=== PATIENT | female | born 1970 | race Caucasian/White ===

== ENCOUNTER → 2017-01-06 | Outpatient (CLI) | payer MEDICAID, MEDICARE ==
--- NOTE | 2017-01-06 08:18 | MR ---
EXAMINATION TYPE: MR lumbar spine wo con DATE OF EXAM: 01/06/2017 7:37 AM COMPARISON: NONE HISTORY: lsp radiculopathy Multiplanar, MultiSpin echo imaging of the lumbar spine was performed. L1-L2: Normal disc appearance without desiccation. No herniation, protrusion or disc bulging. No ca nal stenosis is present. Foramina are patent bilaterally. L2-L3: Mild decreased signal ossified compatible with mild degenerative disc disease. Minimal posteri or disc bulge. No herniation protrusion or central stenosis. Foramina are patent bilaterally. L3-L4: Mild decreased signal ossified compatible with mild degenerative disc disease. Minimal posteri or disc bulge. No herniation protrusion or central stenosis. Foramina are patent bilaterally. L4-L5: Mild decreased signal ossified compatible with mild degenerative disc disease. Minimal posteri or disc bulge. No herniation protrusion or central stenosis. Foramina are patent bilaterally. L5-S1: Normal disc appearance without desiccation. No herniation, protrusion or disc bulging. No ca nal stenosis is present. Foramina are patent bilaterally. Lumbar segments are intact. No paraspinal masses are identified. Conus medullaris has a normal appe arance. IMPRESSION: 1. Mild degenerative disc disease as discussed. 2. Mild posterior disc bulging without herniation protrusion or central stenosis at this time.
== END | disposition home or self-care (01) ==
LOC: RADMRIMAIN 06:59
PROVIDERS: ATTEND Internal Medicine Rheumatology
DX: M51.16 Intervertebral disc disorders with radiculopathy, lumbar region (principal)
CPT/HCPCS: 72148

== ENCOUNTER → 2018-07-24 | Outpatient (CLI) | payer OTHER, MEDICARE ==
[2018-07-24 11:44] LABS: Basophils # (A) 0.1 k/uL (0-0.2); Basophils % (A) 1 %; Eosinophils # (A) 0.2 k/uL (0-0.7); Eosinophils % (A) 2 %; HCT 37.8 % (34.0-46.0); HGB 12.7 gm/dL (11.4-16.0); Lymphocytes # (A) 3.2 k/uL (1.0-4.8); Lymphocytes % (A) 31 %; MCH 31.3 pg (25.0-35.0); MCHC 33.6 g/dL (31.0-37.0); MCV 93.2 fL (80.0-100.0); Mean Platelet Volume 6.8; Monocytes # (A) 0.4 k/uL (0-1.0); Monocytes % (A) 4 %; Neutrophils # (A) 6.3 k/uL (1.3-7.7); Neutrophils % (A) 61 %; Platelet Count 359 k/uL (150-450); RBC 4.05 m/uL (3.80-5.40); RDW 15.6 % (11.5-15.5); WBC 10.4 k/uL (3.8-10.6)
[2018-07-24 12:00] LABS: Albumin 4.7 g/dL (3.5-5.0); Anion Gap 16 mmol/L; Blood Urea Nitrogen 34 mg/dL (7-17); C Reactive Protein 12.2 mg/L (<10.0); Calcium 9.6 mg/dL (8.4-10.2); Carbon Dioxide 33 mmol/L (22-30); Chloride 84 mmol/L (98-107); Glucose 185 mg/dL (74-99); Sodium 133 mmol/L (137-145)
[2018-07-24 12:28] LABS: Erythrocyte Sedimentation Rate 13 mm/hr (0-20)
[2018-07-24 13:02] LABS: Potassium 2.6 mmol/L (3.5-5.1)
== END | disposition home or self-care (01) ==
LOC: LABWHC1 10:37
PROVIDERS: ATTEND Family Medicine
DX: N18.3 Chronic kidney disease, stage 3 (moderate) (principal); R06.00 Dyspnea, unspecified; G89.4 Chronic pain syndrome; R60.9 Edema, unspecified; Z86.711 Personal history of pulmonary embolism
CPT/HCPCS: 36415; 80048; 82040; 85025; 85379; 85652; 86140

== ENCOUNTER 2018-08-17 08:20 | Day surgery (SDC) | payer OTHER, MEDICARE ==
[2018-08-10 11:26] VITALS: BMI 34.0
[~2018-08-17 08:20] MED LIST: ALPRAZolam 0.25 MG TAB PO PRN; NITROGLYCERIN SL TABS 0.4 MG TAB SUBLINGUAL PRN; SODIUM CHLORIDE 0.9% 1,000 ML in EMPTY BAG 1 BAG IV ONE
[2018-08-17 09:06] LABS: Glucose,Whole Blood 134 mg/dL (75-99)
[2018-08-17 09:10] LABS: Calcium 9.3 mg/dL (8.4-10.2); Potassium 3.1 mmol/L (3.5-5.1)
[2018-08-17] MEDS ORDERED: POTASSIUM CHLORIDE ER 20 MEQ TAB.ER PO STA (15:19)
[2018-08-17] MEDS ORDERED: LIDOCAINE 1% INJ 10MG/ML (20 ML MDV) ONE (17:19)
[2018-08-17] MEDS ORDERED: HEPARIN SODIUM 1,000 UN/ML (10ML VL) ONE (17:19)
[2018-08-17] MEDS ORDERED: VERAPAMIL 2.5 MG/ML 2 ML AMP ONE (17:19)
[2018-08-17] MEDS ORDERED: SODIUM CHLORIDE 0.9% 1,000 ML IV ONE (17:41)
[2018-08-17] MEDS ORDERED: MIDAZOLAM 2 MG/2 ML VIAL IVP ONE (17:44)
[2018-08-17] MEDS ORDERED: LIDOCAINE 1% INJ 10MG/ML (20 ML MDV) SQ ONE (17:44)
[2018-08-17] MEDS ORDERED: VERAPAMIL SYRINGE (5 MG/10 ML) INTRAARTER ONE (17:45)
[2018-08-17] MEDS ORDERED: HEPARIN SODIUM 1,000 UN/ML (10ML VL) IV ONE (17:56)
[2018-08-17] MEDS ORDERED: IOPAMIDOL-370 125ML BTL INJ ONE (17:57)
[2018-08-17] MEDS ORDERED: RX INFO: IV CONTRAST WAS GIVEN 1 EACH MISC MISCELLANE PRN (17:59)
[2018-08-17] MEDS ORDERED: SODIUM CHLORIDE 0.9% 1,000 ML IV SCH (18:00)
[2018-08-17 18:27] VITALS: TEMP 98.4
[2018-08-17 18:51] LABS: Glucose,Whole Blood 87 mg/dL (75-99)
--- NOTE | 2018-08-17 19:05 | CC ---
CARDIAC CATHETERIZATION REPORT DATE OF SERVICE: 08/17/2018 PERFORMING PHYSICIAN: Jesus Castillo MD, auto service advisor. PROCEDURES PERFORMED: 1. Selective right and left coronary angiogram. 2. Left heart catheterization. INDICATION: This is a pleasant 48-year-old female patient with diabetes, hypertension and dyslipidemia who was experiencing symptoms of exertional dyspnea concerning for angina. Because of the persistent symptoms and because of multiple risk factors for coronary artery disease, a heart catheterization was advised. APPROACH: Right radial artery. COMPLICATIONS: None. LEVEL OF SEDATION: Moderate sedation length of 15 minutes. PROCEDURE DESCRIPTION: After obtaining informed consent, the patient was brought to the cardiac geoscience laboratory technician. The right radial artery was cannulated using micropuncture technique. The micropuncture wire passed easily. Then I placed a 6-Tajik sheath in the right radial artery. After that, I did selective right and left coronary angiogram using JR4 and JL3.5 catheters. I gave the patient in the beginning 2 mg of verapamil IA. I did left heart catheterization using 6-Tajik pigtail catheter. The procedure was completed without any complications. CORONARY ARTERY ANGIOGRAM: 1. The right coronary artery is a large-caliber vessel and it is a dominant vessel. The RCA has mild disease in the mid portion. It distally bifurcates into PDA and PLV branches. Both are angiographically normal. 2. The left main has mild disease only. It bifurcates into left circumflex, ramus intermedius and left anterior descending artery. 3. The left circumflex is a large-caliber vessel. It is a nondominant vessel. It is angiographically normal. 4. The ramus intermedius is a large-caliber vessel and seems to be angiographically normal. 5. The LAD. The proximal LAD is normal. It gives rise to a large diagonal branch which appeared to be angiographically normal. The mid LAD has mild disease only and the LAD distally appeared to be angiographically normal. HEMODYNAMICS: The left ventricular end-diastolic pressure was 12 mmHg and no gradient was identified across the aortic valve. CONCLUSION: 1. Mild non-obstructive coronary artery disease. 2. Normal left ventricular end-diastolic pressure. POST-PROCEDURE MANAGEMENT: 1. Maximize medical treatment. 2. Follow up with the patient. MMODL / IJN: [id number] /
[2018-08-17 19:47] VITALS: RESP 16
[2018-08-17] MEDS ORDERED: INFLUENZA VACCINE (6 MOS+) 60 MCG/0.5 ML SYRINGE IM ONE (21:00)
[2018-08-17 21:06] LABS: Glucose,Whole Blood 110 mg/dL (75-99)
[2018-08-17 21:28] VITALS: PULSE 76
[2018-08-17 22:38] VITALS: BP 93/67
== END 2018-08-17 23:00 | disposition home or self-care (01) ==
LOC: CATHCVL 08:20 → 3SCARD 17:56 → CATHCVL 23:00
PROVIDERS: ATTEND Internal Medicine Interventional Cardiology
DX: I25.110 Atherosclerotic heart disease of native coronary artery with unstable angina pectoris (principal); I10 Essential (primary) hypertension; E11.9 Type 2 diabetes mellitus without complications; E78.5 Hyperlipidemia, unspecified; E66.3 Overweight; Z68.34 Body mass index [BMI] 34.0-34.9, adult; Z82.49 Family history of ischemic heart disease and other diseases of the circulatory system; Z23 Encounter for immunization; Z79.01 Long term (current) use of anticoagulants; Z79.84 Long term (current) use of oral hypoglycemic drugs; Z79.890 Hormone replacement therapy; Z79.899 Other long term (current) drug therapy; Z88.5 Allergy status to narcotic agent; Z88.2 Allergy status to sulfonamides; Z88.8 Allergy status to other drugs, medicaments and biological substances
CPT/HCPCS: 93458; 80048; 90686; C1769; C1894; G0008; J2250; J2001; J1644; Q9967

== ENCOUNTER 2019-05-07 08:41 | Day surgery (SDC) | payer OTHER, MEDICARE ==
[2019-05-02 13:53] VITALS: BMI 38.1
[~2019-05-07 08:41] MED LIST changes: -ALPRAZolam 0.25 MG TAB PO PRN; +LACTATED RINGERS 1,000 ML IV SCH; -NITROGLYCERIN SL TABS 0.4 MG TAB SUBLINGUAL PRN; -SODIUM CHLORIDE 0.9% 1,000 ML in EMPTY BAG 1 BAG IV ONE
[2019-05-07 09:32] VITALS: RESP 16; TEMP 97.9
[2019-05-07] MEDS ORDERED: LIDOCAINE 1% 20 ML VIAL (10MG/ML) FOR IV START INTRADERMA ONE (10:03)
[2019-05-07 10:08] LABS: Glucose,Whole Blood 114 mg/dL (75-99)
--- NOTE | 2019-05-07 10:24 | P.PCN ---
Date of Procedure: 05/07/19 Procedure(s) Performed: Preoperative diagnosis: Demyelinating disease Post operative diagnoses: Demyelinating disease Anesthesia local infiltration with lidocaine 1% 2 mL, and moderate sedation with Versed 2 mg and fentanyl 50 g Condition: stable Complication: none. Description of the procedure procedure risk and benefits discussed with the patient and family, consent signed. Sedation was given to decrease the patient's anxiety, Patient and the procedure area placed in lateral position back prepped with chlorhexidine 3 times been local infiltration of the skin and subcutaneous tissue with lidocaine 1% 2 mL for skin and subcu interstitial frustrations at L4 5 levels then 22-gauge Quincke-type needle advanced slowly at L4- 5 interlaminar space ,x1 attempte , there was positive cerebrospinal fluid which was clear, no heme, no paresthesia ,total of 9 ML of clear cerebrospinal fluid collected in 4 different tubes 2-2-1/2 mL in each, then the needle removed and a Band-Aid applied and patient tolerated the procedure well without any complications.
[2019-05-07 10:53] VITALS: BP 105/72; PULSE 73
[2019-05-07 10:59] LABS: T4, Free (Free Thyroxine) 1.23 ng/dL (0.78-2.19)
[2019-05-07] MEDS ORDERED: IV FLUID CONTINUATION 1,000 ML IV ONE (10:59)
[2019-05-07 12:11] LABS: Glucose,CSF 80 mg/dL (40-70); Total Protein,CSF 101 mg/dL (12-60)
[2019-05-07 12:44] LABS: Appearance,CSF Clear; CSF Tube Number 4; CSF Tube Volume 2.8; Nucleated Cells, CSF 2 u/L (0-5); Red Blood Cell,CSF 0 u/L (0-10)
[2019-05-07 16:10] LABS: Rheumatoid Factor <4 IU/mL (0-15)
[2019-05-07 17:42] LABS: Anti-DNA, DS unit <1.0 IU/mL; Anti-Smith Ab Interp NEGATIVE (NEGATIVE); DNA Double-Stranded NEGATIVE (NEGATIVE)
[2019-05-08 09:23] LABS: Lyme IgG/IgM 0.05 Index
[2019-05-08 12:20] LABS: VDRL, Qualitative CSF Nonreactive (Nonreactive)
[2019-05-08 12:59] LABS: APTT 34 Sec(s) (<43); Dilute Russell Viper Venom 42 Sec(s) (<44)
[2019-05-08 15:06] LABS: IgG - CSF 2.4 mg/dL (0.0 - 3.4); IgG/Albumin Index (CSF) 0.47 (0.00 - 0.77); Immunoglobulin G 507 mg/dL (700 - 1600)
== END 2019-05-07 11:08 | disposition home or self-care (01) ==
LOC: ORPAIN 08:41
PROVIDERS: ATTEND Specialist
DX: G35 Multiple sclerosis (principal); R51 Headache; E11.9 Type 2 diabetes mellitus without complications; Z79.01 Long term (current) use of anticoagulants; Z86.711 Personal history of pulmonary embolism; Z88.5 Allergy status to narcotic agent; Z88.2 Allergy status to sulfonamides; Z88.8 Allergy status to other drugs, medicaments and biological substances
CPT/HCPCS: 86592 ×2; 86235 ×3; 84439; 88108; 84157; 82945; 82040; 82042; 82784; 83916; 83873; 84443; 84450; 84460; 85730; 86431; 85613; 89050; 86618; 86038; 86225; 87801; 62270; J2250; J3010; 99152

== ENCOUNTER → 2024-01-11 | Outpatient (CLI) | payer MEDICARE, BC ==
[2024-01-11 15:33] VITALS: BP 120/78; PULSE 102; RESP 16; TEMP 98.3; BMI 31.6
--- NOTE | 2024-01-11 15:59 | P.HPBAR ---
Bariatric H&P - History & Physicial H&P Date: 01/11/24 History & Physicial: Visit/CC: Skin Removal Patient initial contact: Initial weight: 67.585 kg Initial weight in pounds: 149.00 Height: 4 ft 9.5 in Initial BMI: 31.6 Last weight: Current weight: 67.585 kg Current weight in pounds: 149.00 Current BMI: 31.6 [place] body weight (based on NIH guidelines): 39.689 kg Excess body weight loss: 0.0% The patient is a 53 year-old F who presents for Bariatric Assessment. She has panniculitis. She has itching. SHe stopped taking. She needs to see a geospatial developer. Needs lost over 100 pounds on her own. Highest weight 260 pounds. She ambulates with a walker. No abdominal pain. She has constipation. She takes lactulose for constipation including Miralax. The last colonscopy 2 years ago. Protein intake is 60 grams daily up to 80+ grams daily. She has grade 3+ panniculitis. On Eliquis for PEs in 2018 x 4, she has SLE lupus for blood. Refrigeration Engineering Teacher in the past was Dr. Castillo. Past Medical History Past Medical History: Asthma, Diabetes Mellitus, Hyperlipidemia, Hypertension, Pulmonary Embolus (PE), Rheumatoid Arthritis (RA), Thyroid Disorder Additional Past Medical History / Comment(s): bladder issues retains urine, History of Any Multi-Drug Resistant Organisms: None Reported Past Surgical History: Section, Cholecystectomy, Hysterectomy, Joint Replacement Additional Past Surgical History / Comment(s): dane oophorectomy, lt open ureter repair with de flap, cervical spinal decompression and fusion, rt total knee replacement Past Psychological History: Anxiety, Depression Additional Psychological History / Comment(s): anxiety disorder, recurrent depression with psychotic features Smoking Status: Never smoker Past Alcohol Use History: None Reported Past Drug Use History: None Reported - Past Family History Mother Family Medical History: No Reported History Surgical - Exam Vital Signs Temp Pulse Resp BP 98.3 F 102 H 16 120/78 01/11/24 15:22 01/11/24 15:22 01/11/24 15:22 01/11/24 15:22 Bariatric Checklist Checklist: Plan: Checklist: EGD: 1. Hiatal hernia: 2. H. Pylori: HgbA1c: Vitamin D: Smoking: Never smoker Primary care physician referral: Psychiatry clearance: Cardiology clearance: Sleep study: Diet journal: VTE risk score: VTE risk level: Rehab needs at discharge:
== END ==
LOC: BARWHC3 15:13
PROVIDERS: ATTEND Surgery Plastic and Reconstructive Surgery
DX: E66.01 Morbid (severe) obesity due to excess calories (principal); Z98.84 Bariatric surgery status; Z90.3 Acquired absence of stomach [part of]; Z68.31 Body mass index [BMI] 31.0-31.9, adult; Z88.8 Allergy status to other drugs, medicaments and biological substances; Z88.5 Allergy status to narcotic agent; Z88.2 Allergy status to sulfonamides
CPT/HCPCS: 99211